=== PATIENT | male | born 1990 | race Two or more races ===

== ENCOUNTER 2023-07-28 08:51 | Emergency (ER) | payer SELFPAY ==
[2023-07-28 09:55] LABS: CORONAVIRUS COVID-19 NAA NEGATIVE (NEGATIVE); INFLUENZA A NAA POSITIVE (NEGATIVE); INFLUENZA B NAA NEGATIVE (NEGATIVE)
== END 2023-07-28 10:29 | disposition home or self-care (01) ==
LOC: MW.ED 08:51
DX: J10.1 Influenza due to other identified influenza virus with other respiratory manifestations (principal); Z75.8 Other problems related to medical facilities and other health care
CPT/HCPCS: 0240U; 87651; 99283; 99282